=== PATIENT | male | born 1980 | race Caucasian/White ===

== ENCOUNTER 2017-03-05 02:17 | Emergency (ER) | payer SELFPAY ==
[~2017-03-05] VITALS: Ht 175.3 cm; Wt 68.7 kg
[2017-03-05] MEDS ORDERED: AZITHROMYCIN 500 MG TABLET ONE (03:18)
[2017-03-05] MEDS ORDERED: CEFTRIAXONE 250 MG ONE (03:18)
[2017-03-05] MEDS ORDERED: CEFTRIAXONE 250 MG IM ONE (03:30)
[2017-03-05] MEDS ORDERED: AZITHROMYCIN 500 MG TABLET PO ONE (03:30)
[2017-03-05 03:46] VITALS: BP 115/74
== END 2017-03-05 03:48 | disposition home or self-care (01) ==
LOC: ED 03:42
DX: A54.01 Gonococcal cystitis and urethritis, unspecified (principal); Z11.3 Encounter for screening for infections with a predominantly sexual mode of transmission
CPT/HCPCS: 96372; 99283; J0696

== ENCOUNTER 2017-05-17 20:03 | Emergency (ER) | payer OTHER ==
[~2017-05-17] VITALS: Ht 177.8 cm; Wt 70.3 kg
[2017-05-17 20:05] VITALS: BP 117/78
[2017-05-17 20:45] LABS: PATH.CAST-FLAG NOT PRESENT; SPERM-FLAG NOT PRESENT; SRC-FLAG NOT PRESENT; XTAL-FLAG NOT PRESENT; YLC-FLAG NOT PRESENT
== END 2017-05-17 20:47 | disposition left against medical advice (07) ==
LOC: ED 20:41
DX: R30.0 Dysuria (principal)
CPT/HCPCS: 81001; 87086; 99284